=== PATIENT | male | born 1960 | race Caucasian/White ===

== ENCOUNTER 2023-04-12 07:46 | Emergency (ER) | payer BC ==
[2023-04-12 08:22] LABS: Absolute Lymphocytes (CBC) 1.2 K/uL (0.7-4.9); Lymphocytes % 21.8 % (15.3-44.8); MCV 89.7 fL (80-100); MPV 7.6 fL (7.6-11.3); Platelets 205 thou/uL (152-406); RBC Red Blood Cell Count 4.57 M/uL (4.33-5.43)
[2023-04-12] MEDS ORDERED: BISACODYL 10 MG RECTAL SUPP ONE (08:35)
[2023-04-12] MEDS ORDERED: FAMOTIDINE 20 MG/2 ML VIAL IV ONE (08:36)
[2023-04-12] MEDS ORDERED: MORPHINE 4 MG/ML SYR ONE (08:36)
[2023-04-12] MEDS ORDERED: ONDANSETRON 4 MG/2 ML VIAL ONE (08:36)
[2023-04-12] MEDS ORDERED: LACTULOSE 20 GM/30 ML UCUP ONE ×2 (08:37→10:07)
[2023-04-12] MEDS ORDERED: NA CHLORIDE 0.9% 2,000 ML ONE (08:37)
[2023-04-12 11:12] LABS: Albumin 3.5 g/dL (3.4-5.0); Bilirubin Total 0.9 mg/dL (0.2-1.0); Potassium 3.9 mEq/L (3.5-5.1); Protein, Total 7.3 g/dL (6.4-8.2)
--- NOTE | 2023-04-12 11:29 | RAD REPORT ---
EXAM DESCRIPTION: CTAbdomen Pelvis W Contrast - 04/12/2023 11:19 am CLINICAL HISTORY: Abd pain;Constipation COMPARISON: No comparisons TECHNIQUE: CT of the abdomen and pelvis was performed with IV contrast. All CT scans are performed using dose optimization technique as appropriate and may include automated exposure control or mA/KV adjustment according to patient size. FINDINGS: Lower chest: Mild circumferential thickened distal esophagus . Small hiatal hernia. Daniels ry artery calcifications. Liver: Question hepatic steatosis. Biliary: No biliary ductal dilatation. Stomach: No significant focal abnormality. Duodenum: No significant focal abnormality. Pancreas: No significant abnormality. Spleen: No significant abnormality. Adrenal: No suspicious lesions. Kidney/ureter: No hydronephrosis. No renal calculi. Bilateral renal sinus and renal cortical cysts. Retroperitoneum: No retroperitoneal adenopathy. Vascular: No aneurysm. Bowel: Sigmoid and rectal wall thickening, more pronounced at the rectum with hyperenhancement as wel l. Normal appendix.. Peritoneum: No ascites or free air. Bladder: Grossly unremarkable. Reproductive: No adnexal masses. Bones: No acute fracture. Moderate severe disc height loss at L5-S1. Other: n/a IMPRESSION: Proctocolitis.
[2023-04-12 11:38] LABS: Specific Gravity 1.018 (1.005-1.030); Urine Bilirubin NEGATIVE (Negative); Urine Blood Negative (Negative); Urine Clarity Clear (Clear); Urine Color Yellow (Yellow); Urine Glucose 4+ (Over) (Negative); Urine Protein NEGATIVE (Negative); Urine Urobilinogen Normal (Normal)
--- NOTE | 2023-04-12 11:41 | ER ---
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 Last BM was Tuesday , it was hard. Coronavirus screen: At this time, the client does not indicate any symptoms associated with coronavirus-19. Ebola Screen: Patient negative for fever greater than or equal to 101.5 degrees Fahrenheit, and additional compatible Ebola Virus Disease symptoms Patient denies exposure to infectious person. Patient denies travel to an Ebola-affected area in the 21 days before illness onset. No symptoms or risks identified at this time. Initial Sepsis Screen: Does the patient meet any 2 criteria? No. Patient's initial sepsis screen is negative. Does the patient have a suspected source of infection? No. Patient's initial sepsis screen is negative. Risk Assessment: Do you want to hurt yourself or someone else? Patient reports no desire to harm self or others. Onset of symptoms was April 12, 2023. 07:50 Method Of Arrival: Ambulatory iw 07:50 Acuity: ARIN 3 iw Historical: - Allergies: 07:53 No Known Allergies; iw - Home Meds: 07:53 nystatin 500,000 unit Oral tablet 4 times per day [Active]; gabapentin 600 mg oral iw tablet 3 times per day [Active]; dexamethasone 2 mg Oral tablet [Active]; atorvastatin 80 mg oral tablet every evening [Active]; lisinopril-hydrochlorothiazide 10-12.5 mg oral tablet daily [Active]; carvedilol 12.5 mg oral tablet 2 times per day [Active]; oxybutynin chloride 10 mg Oral Tablet, Extended Release 24 hr daily [Active]; Farxiga 10 mg oral tablet daily [Active]; Descovy 200-25 mg oral tablet daily [Active]; aspirin 81 mg Oral tablet,chewable daily [Active]; Ozempic 2 mg/dose (8 mg/3 mL) subcutaneous Pen Injector every week [Active]; - PMHx: 07:57 Myocardial infarction; Hypertensive disorder; Diabetes mellitus; 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 - Social history:: Smoking status: Patient denies any tobacco usage or history of. Screenin:49 [facility] ED Fall Risk Assessment (Adult) History of falling in the last 3 months, tf2 including since admission No falls in past 3 months (0 pts) Confusion or Disorientation No (0 pts) Intoxicated or Sedated No (0 pts) Impaired Gait No (0 pts) Mobility Assist Device Used No (0 pt) Altered Elimination No (0 pt) Score/Fall Risk Level 0 - 2 = Low Risk Oriented to surroundings, Maintained a safe environment, Educated pt \T\ family on fall prevention, incl call for assistance when getting out of bed, Assessed \T\ reinforced patient's understanding of fall precautions, Provided non-skid footwear. 08:50 Abuse screen: Denies threats or abuse. Denies injuries from another. Nutritional tf2 screening: No deficits noted. Tuberculosis screening: No symptoms or risk factors identified. Assessment: 08:41 General: Appears in no apparent distress. Behavior is calm, cooperative, Denies fever, tf2 fatigue, chills. Pain: Complains of pain in gluteal cleft. Neuro: No deficits noted. Cardiovascular: No deficits noted. Respiratory: No deficits noted. GI: Bowel sounds present X 4 quads. : No deficits noted. EENT: Reports difficulty swallowing since radiation treatment completed. pain when swallowing. Derm: Skin is red. Musculoskeletal: No deficits noted. 14:09 GI: Abd is non tender. tf2 Vital Signs: 07:50 BP 126 / 72; Pulse 56; Resp 16; Temp 97.2; Pulse Ox 100% on R/A; Weight 119.75 kg; iw Height 6 ft. 4 in. ; Pain 3/10; 08:43 BP 98 / 61; Pulse 44; Resp 16; Pulse Ox 99% on R/A; tf2 11:29 BP 109 / 71; Pulse 44; Resp 18; Pulse Ox 100% on R/A; tf2 13:30 BP 100 / 65; Pulse 45; Resp 18; Pulse Ox 100% on R/A; tf2 07:50 Body Mass Index 32.13 (119.75 kg, 193.04 cm) iw 07:50 Pain Scale: Adult iw Vitals: 08:43 Cardiac Rhythm Assessment Regular Sinus ronn. tf2 [place] Coma Score: 08:43 Eye Response: spontaneous(4). Motor Response: obeys commands(6). Verbal Response: tf2 oriented(5). Total: 15. 09:38 Eye Response: spontaneous(4). Motor Response: obeys commands(6). Verbal Response: cale oriented(5). Total: 15. ED Course: 07:48 Patient arrived in ED. mr 07:53 Triage completed. iw 07:54 Francisco J Oh MD is Attending Physician. cale 07:57 Arm band placed on. iw 08:10 Inserted saline lock: 20 gauge in right antecubital area, using aseptic technique. rs5 Blood collected. 08:20 Sherry Nassar, RN is Primary Nurse. tf2 08:50 Awaiting lab results. tf2 08:50 Patient has correct armband on for positive identification. Bed in low position. Call tf2 light in reach. Side rails up X 1. Provided Education on: medications being administered.. 08:50 No provider procedures requiring assistance completed. tf2 10:00 Pt up to bathroom to collect urine; only able to void approx 10 cc. Pt given 2nd liter tf2 of NS and additional lacutlose med as ordered. 11:21 CT Abd/Pelvis - PO and IV Contrast In Process Unspecified. EDMS 11:40 Jennie Carlson MD is Referral Physician. cale 13:30 IV discontinued. tf2 Administered Medications: 08:39 Drug: Famotidine IVP 20 mg Route: IVP; Site: right antecubital; tf2 08:39 Drug: Dulcolax [place] Suppository 10 mg Route: [place]; tf2 13:45 Follow up: Response: No adverse reaction tf2 08:39 Drug: Lactulose PO 30 grams Volume: 45 ml; Route: PO; tf2 13:45 Follow up: Response: No adverse reaction tf2 08:40 Drug: NS 0.9% IV 1000 ml Route: IV; Rate: 1 bolus; Infused Over: 30 mins; Site: right tf2 antecubital; 10:00 Follow up: IV Status: Completed infusion tf2 08:40 Drug: Ondansetron IVP 4 mg Route: IVP; Site: right antecubital; tf2 08:40 Drug: morphine IVP or IV 4 mg Route: IVP; Infused Over: 4 mins; Site: right antecubital;tf2 09:54 Drug: NS 0.9% IV 1000 ml Route: IV; Rate: 1 bolus; Site: right antecubital; tf2 11:45 Follow up: IV Status: Completed infusion tf2 10:01 Drug: Lactulose PO 30 grams Volume: 45 ml; Route: PO; tf2 13:46 Follow up: Response: No adverse reaction; Marked relief of symptoms tf2 12:05 Drug: Rocephin IV 1 grams Route: IV; Rate: per protocol; Site: right antecubital; tf2 13:43 Follow up: Response: No adverse reaction tf2 12:10 Drug: metroNIDAZOLE IVPB 500 mg Volume: 100 ml; Route: IVPB; Rate: 200 ml/hr; Infused tf2 Over: 30 mins; Site: right antecubital; 12:40 Follow up: Response: No adverse reaction; IV Status: Completed infusion; IV Intake: tf2 100ml 12:45 Drug: Ciprofloxacin IVPB 400 mg Volume: 200 ml; Route: IVPB; Infused Over: 60 mins; tf2 Site: right antecubital; 13:45 Follow up: Response: No adverse reaction; IV Status: Completed infusion tf2 Medication: 13:30 VIS not applicable for this client. tf2 Intake: 12:40 IV: 100ml; Total: 100ml. tf2 Outcome: 11:41 Discharge ordered by MD. madsen 13:30 Condition: good tf2 13:30 Discharge instructions given to patient, Instructed on discharge instructions, follow up and referral plans. medication usage, Diet and fluid intake Demonstrated understanding of instructions, follow-up care, medications, Prescriptions given X 4. 14:09 Discharged to home tf2 14:10 Patient left the ED. tf2 Signatures: Dispatcher [employer] EDMA Francisco J Oh MD MD cha Rivera, Maranda Deborah Ribera RN RN iw Santi Barron RN RN rs5 Sherry Nassar RN RN tf2 Corrections: (The following items were deleted from the chart) 08:11 07:50 Chief complaint: Patient states: trying to have a BM , can't pass it, X 2 hours, iw recovering from cancer n his tonsil and right lymph node, feels like he has not been drinking enough water. Last BM was Tuesday , it was hard iw
--- NOTE | 2023-04-12 11:41 | EDPHYS ---
Physician Documentation [facility] Name: Pablo Peace Age: 62 yrs Sex: Male : 1960 Arrival Date: 04/12/2023 Time: 07:46 Bed 11 Private MD: ESTEBAN Physician Francisco J Oh HPI: 04/12 09:20 This 62 yrs old Male presents to ER via Ambulatory with complaints of cale Constipation, Rectal Bleeding. 09:20 The patient presents to the emergency department with bleeding from the rectum/anus, cale that is mild. Onset: The symptoms/episode began/occurred 3 day(s) ago. Context: the patient has no known special context relating to the rectal area complaint(s). Modifying factors: The symptoms are alleviated by nothing, The symptoms are aggravated by bowel movement. Historical: - Allergies: 07:53 No Known Allergies; iw - Home Meds: 07:53 nystatin 500,000 unit Oral tablet 4 times per day [Active]; gabapentin 600 mg oral iw tablet 3 times per day [Active]; dexamethasone 2 mg Oral tablet [Active]; atorvastatin 80 mg oral tablet every evening [Active]; lisinopril-hydrochlorothiazide 10-12.5 mg oral tablet daily [Active]; carvedilol 12.5 mg oral tablet 2 times per day [Active]; oxybutynin chloride 10 mg Oral Tablet, Extended Release 24 hr daily [Active]; Farxiga 10 mg oral tablet daily [Active]; Descovy 200-25 mg oral tablet daily [Active]; aspirin 81 mg Oral tablet,chewable daily [Active]; Ozempic 2 mg/dose (8 mg/3 mL) subcutaneous Pen Injector every week [Active]; - PMHx: 07:57 Myocardial infarction; Hypertensive disorder; Diabetes mellitus; 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 - Social history:: Smoking status: Patient denies any tobacco usage or history of. ROS: 09:38 Constitutional: Negative for fever, chills, and weight loss, Eyes: Negative for injury, cale pain, redness, and discharge, ENT: Negative for injury, pain, and discharge, Neck: Negative for injury, pain, and swelling, Cardiovascular: Negative for chest pain, palpitations, and edema, Respiratory: Negative for shortness of breath, cough, wheezing, and pleuritic chest pain, Back: Negative for injury and pain, : Negative for injury, bleeding, discharge, and swelling, MS/Extremity: Negative for injury and deformity, Skin: Negative for injury, rash, and discoloration, Neuro: Negative for headache, weakness, numbness, tingling, and seizure, Psych: Negative for depression, anxiety, suicide ideation, homicidal ideation, and hallucinations, Allergy/Immunology: Negative for hives, rash, and allergies, Endocrine: Negative for neck swelling, polydipsia, polyuria, polyphagia, and marked weight changes, Hematologic/Lymphatic: Negative for swollen nodes, abnormal bleeding, and unusual bruising. 09:38 Respiratory: Positive for 09:38 Abdomen/GI: Positive for Exam: 09:38 Constitutional: This is a well developed, well nourished patient who is awake, alert, cale and in no acute distress. Head/Face: Normocephalic, atraumatic. Eyes: Pupils equal round and reactive to light, extra-ocular motions intact. Lids and lashes normal. Conjunctiva and sclera are non-icteric and not injected. Cornea within normal limits. Periorbital areas with no swelling, redness, or edema. ENT: Nares patent. No nasal discharge, no septal abnormalities noted. Tympanic membranes are normal and external auditory canals are clear. Oropharynx with no redness, swelling, or masses, exudates, or evidence of obstruction, uvula midline. Mucous membranes moist. Neck: Trachea midline, no thyromegaly or masses palpated, and no cervical lymphadenopathy. Supple, full range of motion without nuchal rigidity, or vertebral point tenderness. No Meningismus. Chest/axilla: Normal chest wall appearance and motion. Nontender with no deformity. No lesions are appreciated. Cardiovascular: Regular rate and rhythm with a normal S1 and S2. No gallops, murmurs, or rubs. Normal PMI, no JVD. No pulse deficits. Respiratory: Lungs have equal breath sounds bilaterally, clear to auscultation and percussion. No rales, rhonchi or wheezes noted. No increased work of breathing, no retractions or nasal flaring. Back: No spinal tenderness. No costovertebral tenderness. Full range of motion. Male : Normal genitalia with no discharge or lesions. Skin: Warm, dry with normal turgor. Normal color with no rashes, no lesions, and no evidence of cellulitis. MS/ Extremity: Pulses equal, no cyanosis. Neurovascular intact. Full, normal range of motion. Neuro: Awake and alert, GCS 15, oriented to person, place, time, and situation. Cranial nerves II-XII grossly intact. Motor strength 5/5 in all extremities. Sensory grossly intact. Cerebellar exam normal. Normal gait. Psych: Awake, alert, with orientation to person, place and time. Behavior, mood, and affect are within normal limits. 09:38 Abdomen/GI: Inspection: abdomen appears normal, Bowel sounds: normal, Palpation: mild abdominal tenderness, in the left upper quadrant and left lower quadrant, Liver: no appreciated palpable abnormalities, Hernia: not appreciated. Vital Signs: 07:50 BP 126 / 72; Pulse 56; Resp 16; Temp 97.2; Pulse Ox 100% on R/A; Weight 119.75 kg; iw Height 6 ft. 4 in. ; Pain 3/10; 08:43 BP 98 / 61; Pulse 44; Resp 16; Pulse Ox 99% on R/A; tf2 11:29 BP 109 / 71; Pulse 44; Resp 18; Pulse Ox 100% on R/A; tf2 13:30 BP 100 / 65; Pulse 45; Resp 18; Pulse Ox 100% on R/A; tf2 07:50 Body Mass Index 32.13 (119.75 kg, 193.04 cm) iw 07:50 Pain Scale: Adult iw [place] Coma Score: 08:43 Eye Response: spontaneous(4). Motor Response: obeys commands(6). Verbal Response: tf2 oriented(5). Total: 15. 09:38 Eye Response: spontaneous(4). Motor Response: obeys commands(6). Verbal Response: cale oriented(5). Total: 15. MDM: 07:54 Patient medically screened. cale 10:39 Differential diagnosis: hemorrhoids. Data reviewed: vital signs, nurses notes, lab test cale result(s), radiologic studies. Consideration of Admission/Observation Escalation of care including admission/observation considered. I considered the following discharge prescriptions or medication management in the emergency department Medications were administered in the Emergency Department. See MAR. Test considered but Not performed: MRI: mri abd not done. Care significantly affected by the following chronic conditions: Diabetes, Hypertension, mi, oral cancer. 04/12 07:55 Order name: CBC with Diff; Complete Time: 11:07 [facility] 04/12 07:55 Order name: CMP; Complete Time: 11:38 [facility] 04/12 07:55 Order name: Lipase; Complete Time: 11:38 [facility] 04/12 07:55 Order name: Urinalysis w/ reflexes; Complete Time: 11:38 [facility] 04/12 08:50 Order name: CT Abd/Pelvis - PO and IV Contrast; Complete Time: 11:38 [facility] 04/12 07:55 Order name: IV Saline Lock; Complete Time: 08:20 [facility] 04/12 07:55 Order name: Labs collected and sent; Complete Time: 08:21 [facility] Administered Medications: 08:39 Drug: Famotidine IVP 20 mg Route: IVP; Site: right antecubital; tf2 08:39 Drug: Dulcolax [place] Suppository 10 mg Route: [place]; tf2 13:45 Follow up: Response: No adverse reaction tf2 08:39 Drug: Lactulose PO 30 grams Volume: 45 ml; Route: PO; tf2 13:45 Follow up: Response: No adverse reaction tf2 08:40 Drug: NS 0.9% IV 1000 ml Route: IV; Rate: 1 bolus; Infused Over: 30 mins; Site: right tf2 antecubital; 10:00 Follow up: IV Status: Completed infusion tf2 08:40 Drug: Ondansetron IVP 4 mg Route: IVP; Site: right antecubital; tf2 08:40 Drug: morphine IVP or IV 4 mg Route: IVP; Infused Over: 4 mins; Site: right antecubital;tf2 09:54 Drug: NS 0.9% IV 1000 ml Route: IV; Rate: 1 bolus; Site: right antecubital; tf2 11:45 Follow up: IV Status: Completed infusion tf2 10:01 Drug: Lactulose PO 30 grams Volume: 45 ml; Route: PO; tf2 13:46 Follow up: Response: No adverse reaction; Marked relief of symptoms tf2 12:05 Drug: Rocephin IV 1 grams Route: IV; Rate: per protocol; Site: right antecubital; tf2 13:43 Follow up: Response: No adverse reaction tf2 12:10 Drug: metroNIDAZOLE IVPB 500 mg Volume: 100 ml; Route: IVPB; Rate: 200 ml/hr; Infused tf2 Over: 30 mins; Site: right antecubital; 12:40 Follow up: Response: No adverse reaction; IV Status: Completed infusion; IV Intake: tf2 100ml 12:45 Drug: Ciprofloxacin IVPB 400 mg Volume: 200 ml; Route: IVPB; Infused Over: 60 mins; tf2 Site: right antecubital; 13:45 Follow up: Response: No adverse reaction; IV Status: Completed infusion tf2 Disposition Summary: 04/12/23 11:41 Discharge Ordered Location: Home [facility] Problem: new cale Symptoms: have improved cale Condition: Stable cale Diagnosis - Constipation cale - Constipation, unspecified cale - GI Bleed/ Gastrointestinal hemorrhage, unspecified - lower cale - Left sided colitis with rectal bleeding - Proctocolitis [facility] Followup: cale - With: Private Physician - When: 2 - 3 days - Reason: Recheck today's complaints, Continuance of care, Re-evaluation by your physician Followup: cale - With: - When: 2 - 3 days - Reason: Recheck today's complaints, Re-evaluation by your physician Discharge Instructions: - Discharge Summary Sheet cale - Constipation, Adult cale - Gastrointestinal Bleeding cale - Rectal Bleeding cale - Constipation, Adult, [id number] cale - Rectal Bleeding, [id number] cale - Colitis [facility] Forms: - Medication Reconciliation Form [facility] - Thank You Letter [facility] - Antibiotic Education [facility] - Prescription Opioid Use [facility] - Patient Portal Instructions [facility] - Leadership Thank You Letter [facility] Prescriptions: - Dulcolax (bisacodyl) 10 mg Rectal suppository - insert 1 suppository by RECTAL route every 12 hours for 5 days; 10 suppository; [facility] Refills: 0, Product Selection Permitted - Flagyl 500 mg Oral Tablet - take 1 tablet by ORAL route every 6 hours for 10 days; 28 tablet; Refills: 0, [facility] Product Selection Permitted - Lactulose 10 gram/15 mL Oral Solution - take 30 milliliters by ORAL route once daily; 300 milliliter; Refills: 0, [facility] Product Selection Permitted - Cipro 500 mg Oral Tablet - take 1 tablet by ORAL route every 12 hours for 7 days; 14 tablet; Refills: 0, [facility] Product Selection Permitted Signatures: Dispatcher [employer] EDMS Adriano, Francisco J, MD MD cale Bacilio, Deborah, RN RN iw Nassar, Sherry, RN RN tf2
[2023-04-12] MEDS ORDERED: CIPROFLOXACIN 400mg IV 400 MG/200 ML BAG IV ONE (12:08)
[2023-04-12] MEDS ORDERED: CEFTRIAXONE 1000 MG/VIAL ONE (12:08)
[2023-04-12] MEDS ORDERED: METRONIDAZOLE 500mg IVPB 500 MG/100 ML BAG IV ONE (12:08)
[2023-04-12 14:33] VITALS: TEMP 97.2
[2023-04-12 14:38] VITALS: O2SAT 100
[2023-04-12 14:39] VITALS: BP 100/65
== END 2023-04-12 14:10 | disposition home or self-care (01) ==
LOC: ER 07:46
DX: K59.00 Constipation, unspecified (principal); K51.511 Left sided colitis with rectal bleeding; K92.2 Gastrointestinal hemorrhage, unspecified; E11.9 Type 2 diabetes mellitus without complications; I10 Essential (primary) hypertension; I25.2 Old myocardial infarction; Z95.818 Presence of other cardiac implants and grafts; Z79.82 Long term (current) use of aspirin; Z79.4 Long term (current) use of insulin
CPT/HCPCS: 96365; 96367; 96361; 85025; 36415; 81003; 83690; 80053; 74177; 96375; 99284; Q9967; J2405; J0744; J7030; J0696